=== PATIENT | female | born 2000 | race Asian ===

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

== ENCOUNTER 2019-11-27 08:39 | Inpatient (IN) | payer BC, OTHER ==
[~2019-11-27] VITALS: Ht 157.5 cm; Wt 55.9 kg
[2019-11-27 09:18] LABS: *URINE HCG, QUAL NEGATIVE (NEGATIVE)
[2019-11-27] MEDS ORDERED: BUPIVACAINE/EPI PF 0.25% 30 ML VIAL ONE (09:21)
[2019-11-27] MEDS ORDERED: ROCURONIUM BROMIDE 50 MG/5 ML VIAL ONE (09:55)
[2019-11-27] MEDS ORDERED: MIDAZOLAM HCL 2 MG/2 ML VIAL ONE ×2 (09:55→11:03)
[2019-11-27] MEDS ORDERED: HYDROMORPHONE 2 MG/1 ML DISP.SYRIN ONE (09:55)
[2019-11-27] MEDS ORDERED: ESMOLOL HCL 100 MG/10 ML VIAL IV ONE (11:40)
[2019-11-27] MEDS ORDERED: KETOROLAC TROMETHAMINE 30 MG INJ IM ONE (11:40)
[2019-11-27] MEDS ORDERED: SEVOFLURANE 250 ML BOTTLE IH ONE (11:40)
[2019-11-27] MEDS ORDERED: GLYCOPYRROLATE 0.2 MG/ML VIAL IJ ONE (11:40)
[2019-11-27] MEDS ORDERED: IV NORMAL SALINE 1000 ML BAG IV ONE ×2 (11:40)
[2019-11-27] MEDS ORDERED: DEXAMETHASONE SOD PHOSPHATE 4 MG INJ IV ONE (11:40)
[2019-11-27] MEDS ORDERED: LIDOCAINE-MPF 2% 5 ML VIAL IJ ONE (11:40)
[2019-11-27] MEDS ORDERED: ONDANSETRON 4 MG/2 ML VIAL IV ONE (11:40)
[2019-11-27] MEDS ORDERED: NEOSTIGMINE METHYLSULFATE 10 MG/10 ML VIAL IM ONE (11:40)
[2019-11-27] MEDS ORDERED: PROPOFOL 200 MG/20 ML BOTTLE IV ONE (11:40)
[2019-11-27] MEDS ORDERED: METOCLOPRAMIDE HCL 10 MG/2 ML VIAL IV ONE (11:40)
[2019-11-27] MEDS ORDERED: FENTANYL CITRATE 100 MCG/2 ML AMPUL ONE (12:15)
[2019-11-27] MEDS ORDERED: MEPERIDINE 25 MG/1 ML DISP.SYRIN ONE (12:47)
[2019-11-27] MEDS ORDERED: IV LACTATED RINGERS SOLUTION 1,000 ML IV PRN (13:00)
[2019-11-27] MEDS ORDERED: HYDROMORPHONE 1 MG/1 ML DISP.SYRIN IV PRN (13:00)
[2019-11-27 13:18] VITALS: BP 118/58
[2019-11-27] MEDS ORDERED: Z GUARD REMEDY PASTE 57 GM TUBE TOP PRN (14:15)
[2019-11-27] MEDS ORDERED: ZOLPIDEM 5 MG TABLET PO PRN (14:15)
[2019-11-27] MEDS ORDERED: ACETAMINOPHEN 325 MG TABLET PO PRN (14:15)
[2019-11-27] MEDS ORDERED: MAGNESIUM HYDROXIDE 30 ML LIQUID UDC PO PRN (14:15)
[2019-11-27 15:32] VITALS: BP 104/52
[2019-11-27 20:00] VITALS: BP 103/61
[2019-11-28 05:00] VITALS: BP 102/50
[2019-11-28] MEDS: HYDROCODONE/APAP 5-325MG TABLET PO PRN (05:33)
[2019-11-28] MEDS ORDERED: ONDANSETRON 4 MG/2 ML VIAL ONE (05:51)
[2019-11-28] MEDS: ONDANSETRON INJ 8 MG in IV NORMAL SALINE 50 ML IV PRN (06:09)
[2019-11-28] MEDS: HYDROMORPHONE 1 MG/1 ML DISP.SYRIN IV PRN ×2 (07:02→18:35)
[2019-11-28 07:08] LABS: BASOPHILS % (AUTO) 0.2 % (0.0-2.0); HEMATOCRIT 34.3 % (31.2-41.9); HEMOGLOBIN 11.4 g/dL (10.9-14.3); LYMPHOCYTES # (AUTO) 2.5 K/uL (20.0-40.0); LYMPHOCYTES % (AUTO) 21.8 % (20.5-74.5); MEAN CORPUSCULAR HEMOGLOBIN 26.1 uug (24.7-32.8); MEAN CORPUSCULAR HGB CONC 33 g/dL (32.3-35.6); MEAN CORPUSCULAR VOLUME 78.9 fL (75.5-95.3); MONOCYTES # (AUTO) 0.8 K/uL (2.0-10.0); MONOCYTES % (AUTO) 7.1 % (0-11); NEUTROPHILS # (AUTO) 8.1 K/uL (1.8-8.9); NEUTROPHILS % (AUTO) 70.9 % (31.5-64.5); PLATELET COUNT (AUTO) 268 K/uL (179-408); RED BLOOD CELL COUNT(AUTO) 4.35 MIL/uL (3.63-4.92); WHITE BLOOD COUNT (AUTO) 11.4 K/uL (3.8-11.8)
[2019-11-28 07:22] LABS: CREATININE 0.7 mg/dL (0.6-1.3); MAGNESIUM 1.9 mg/dL (1.8-2.4); PHOSPHOROUS 3.9 mg/dL (2.5-4.9); POTASSIUM 3.5 mmol/L (3.5-5.1)
[2019-11-28 11:42] VITALS: BP 97/48
[2019-11-28 15:29] VITALS: BP 100/43
[2019-11-28] MEDS ORDERED: IV NS 1000 ML 1,000 ML IV PRN (16:45)
[2019-11-28 20:03] VITALS: BP 109/57
[2019-11-29] VITALS (8 sets, daily range): BP systolic 86–101; BP diastolic 43–63
[2019-11-29] MEDS: ONDANSETRON INJ 8 MG in IV NORMAL SALINE 50 ML IV PRN (04:29)
[2019-11-29] MEDS: HYDROMORPHONE 1 MG/1 ML DISP.SYRIN IV PRN ×2 (04:30→22:21)
[2019-11-29 06:41] LABS: BASOPHILS % (AUTO) 0.5 % (0.0-2.0); EOSINOPHILS # (AUTO) 0.2 K/uL (0.0-0.7); EOSINOPHILS % (AUTO) 1.9 % (0.0-7.0); HEMATOCRIT 32.9 % (31.2-41.9); HEMOGLOBIN 11.1 g/dL (10.9-14.3); LYMPHOCYTES # (AUTO) 1.7 K/uL (20.0-40.0); LYMPHOCYTES % (AUTO) 19.9 % (20.5-74.5); MEAN CORPUSCULAR HEMOGLOBIN 26.8 uug (24.7-32.8); MEAN CORPUSCULAR HGB CONC 34 g/dL (32.3-35.6); MEAN CORPUSCULAR VOLUME 79.7 fL (75.5-95.3); MONOCYTES # (AUTO) 0.6 K/uL (2.0-10.0); MONOCYTES % (AUTO) 6.6 % (0-11); NEUTROPHILS # (AUTO) 6.2 K/uL (1.8-8.9); NEUTROPHILS % (AUTO) 71.1 % (31.5-64.5); PLATELET COUNT (AUTO) 246 K/uL (179-408); RED BLOOD CELL COUNT(AUTO) 4.13 MIL/uL (3.63-4.92); WHITE BLOOD COUNT (AUTO) 8.7 K/uL (3.8-11.8)
[2019-11-29 06:55] LABS: CREATININE 0.6 mg/dL (0.6-1.3); MAGNESIUM 1.9 mg/dL (1.8-2.4); PHOSPHOROUS 3.4 mg/dL (2.5-4.9); POTASSIUM 3.5 mmol/L (3.5-5.1)
[2019-11-29] MEDS: MIRALAX 17 GM POWD.PACK PO SCH (09:53)
[2019-11-29] MEDS ORDERED: IV NS 1000 ML 1,000 ML IV ONE (11:00)
[2019-11-29] MEDS: IV NS 1000 ML 1,000 ML IV PRN (15:43)
[2019-11-29] MEDS ORDERED: ONDANSETRON 4 MG/2 ML VIAL ONE (23:04)
[2019-11-30] MEDS ORDERED: ONDANSETRON 4 MG/2 ML VIAL ONE (01:17)
[2019-11-30] MEDS: IV NS 1000 ML 1,000 ML IV PRN (03:46)
[2019-11-30 04:01] VITALS: BP 96/50
[2019-11-30 07:26] LABS: CREATININE 0.6 mg/dL (0.6-1.3); MAGNESIUM 1.9 mg/dL (1.8-2.4); PHOSPHOROUS 3.6 mg/dL (2.5-4.9); POTASSIUM 3.7 mmol/L (3.5-5.1)
[2019-11-30 07:30] LABS: BASOPHILS % (AUTO) 0.5 % (0.0-2.0); EOSINOPHILS # (AUTO) 0.3 K/uL (0.0-0.7); EOSINOPHILS % (AUTO) 4.2 % (0.0-7.0); HEMATOCRIT 32.5 % (31.2-41.9); HEMOGLOBIN 10.7 g/dL (10.9-14.3); LYMPHOCYTES # (AUTO) 1.7 K/uL (20.0-40.0); LYMPHOCYTES % (AUTO) 24.8 % (20.5-74.5); MEAN CORPUSCULAR HEMOGLOBIN 26.7 uug (24.7-32.8); MEAN CORPUSCULAR HGB CONC 33 g/dL (32.3-35.6); MEAN CORPUSCULAR VOLUME 80.8 fL (75.5-95.3); MONOCYTES # (AUTO) 0.5 K/uL (2.0-10.0); MONOCYTES % (AUTO) 6.8 % (0-11); NEUTROPHILS # (AUTO) 4.3 K/uL (1.8-8.9); NEUTROPHILS % (AUTO) 63.7 % (31.5-64.5); PLATELET COUNT (AUTO) 250 K/uL (179-408); RED BLOOD CELL COUNT(AUTO) 4.02 MIL/uL (3.63-4.92); WHITE BLOOD COUNT (AUTO) 6.7 K/uL (3.8-11.8)
[2019-11-30] MEDS: MIRALAX 17 GM POWD.PACK PO SCH (08:05)
[2019-11-30] MEDS: HYDROCODONE/APAP 5-325MG TABLET PO PRN (08:17)
== END 2019-11-30 10:35 | disposition home or self-care (01) | DRG 743 ==
LOC: DS 08:39 → MEDSURG3 12:39
PROVIDERS: ADMIT Student in an Organized Health Care Education/Training Program; ATTEND Obstetrics & Gynecology
PROC: 0UT10ZZ Resection of Left Ovary, Open Approach (ICD-10-PCS; principal; 2019-11-27)
DX: D27.1 Benign neoplasm of left ovary (principal); I95.9 Hypotension, unspecified; R50.9 Fever, unspecified
CPT/HCPCS: 36415; 83735; 84100; 84703; 85025; 86900; 86901; A4663; G0378; J1100; J1170; J1885; J2175; J2250; J2405; J2710; J2765; J3010; J3490; J7030; J7120